=== PATIENT | male | born 1990 | race Hispanic/Latino ===

== ENCOUNTER 2016-07-19 20:06 | Emergency (ER) | payer MEDICAID ==
[2016-07-19 20:37] VITALS: BP 137/74; PULSE 68; RESP 18; TEMP 97.3; O2SAT 100
[2016-07-19] MEDS ORDERED: Tetanus/Diphtheria Toxoids 0.5 ml Syringe IM ONE ×2 (20:54→20:59)
--- NOTE | 2016-07-19 20:57 | C.PDOC ---
History Of Present Illness 25 yo male come in for evaluation of gradual onset of lower back pain " after was playing basketball and woke up next day with back pain". Pt reports, pain is localized over lower back, non-radiating and worse with movement. Otherwise, pt denies known direct trauma or injury, fall, abd. pain, N/V, UTI sx, saddle anesthesia, incontinence, denies weakness, sensory or vascular deficits to B/L LEs. Pt also request tetanus inj. after " stuck my finger over metal at work 3 days ago". Denies pain, swelling or wound discharge from injured Right thumb. Ambulate to ED for evaluation, appears in pain. Time Seen by Provider: 07/19/16 20:38 Chief Complaint (Nursing): Back Pain History Per: Patient Onset/Duration Of Symptoms: Gradual Current Symptoms Are (Timing): Worse Past Medical History Reviewed: Historical Data, Nursing Documentation, Vital Signs Vital Signs: Last Vital Signs Temp 97.3 F L 07/19/16 20:34 Pulse 68 07/19/16 20:34 Resp 18 07/19/16 20:34 BP 137/74 07/19/16 20:34 Pulse Ox 100 07/19/16 20:34 - Medical History PMH: No Chronic Diseases Surgical History: No Surg Hx Family History: States: No Known Family Hx - Social History Hx Alcohol Use: Yes Hx Substance Use: No - Immunization History Hx Tetanus Toxoid Vaccination: No (unknown) Hx Influenza Vaccination: No Hx Pneumococcal Vaccination: No Review Of Systems Except As Marked, All Systems Reviewed And Found Negative. Constitutional: Negative for: Fever, Chills ENT: Negative for: Throat Pain Respiratory: Negative for: Cough, Shortness of Breath Gastrointestinal: Negative for: Nausea, Vomiting, Abdominal Pain, Diarrhea Genitourinary: Negative for: Dysuria, Frequency, Incontinence Musculoskeletal: Positive for: Back Pain Skin: Positive for: Lesions Neurological: Negative for: Weakness, Numbness, Dizziness Physical Exam - Physical Exam Appears: Well, Non-toxic, No Acute Distress Skin: Normal Color, Warm, Dry Eye(s): bilateral: Normal Inspection Throat: Normal Neck: Normal, Normal ROM, Trachea Midline, Supple Respiratory: Normal Breath Sounds Gastrointestinal/Abdominal: Normal Exam, Soft, No Tenderness, No Distention, No Guarding, No Rebound Back: No CVA Tenderness, No Vertebral Tenderness, Paraspinal Tenderness ( diffuse mild lumbar paraspinal tenderness with muscle spams and mild edema. No midline tenderness or deformity.) Extremity: Normal ROM, No Pedal Edema, No Deformity, Other (Right thumb punctuate subungual hematoma noted medial aspect nail. No edema, no erythema, no proximal streaking. FAROM, no neurovascular deficits.) Neurological/Psych: Oriented x3, Normal Speech, Normal Motor, Normal Sensation, Normal Reflexes ED Course And Treatment O2 Sat by Pulse Oximetry: 100 Pulse Ox Interpretation: Normal Progress Note: On re-eval, pt is afebrile, hemodynamicaly stable. NOn-toxic. Ambulatory in ED with stable gait. Tolerate Po well in Ed. ENT: no acute findings. Lungs: CTA B/L, BS equal B/L. ABd: benign. Neurologicaly intact. Imaging ( xray of L-spine) offered, pt refused at this time. Analgesics, tetanus given. Pt has clinical findings c/w lumbar strain, finger contusion/ punctuate subungual hematoma. Pt advised. ref. to F/u with PMD, PM In 2-3 days for re-eval. return if any new changes. Disposition Counseled Patient/Family Regarding: Diagnosis, Need For Followup, Rx Given - Disposition Referrals: Non [facility] Provider, [Primary Care Provider] - [facility] [Outside] Disposition: HOME/ ROUTINE Disposition Time: 20:57 Condition: STABLE Additional Instructions: No physical activity for 1week, avoid heavy lifting, bending, etc. Take pain medication as prescribed Follow up with PMD, Pain Management, PT in 2-3 days for re-evaluation. Return to ED if any worsening or new changes. Prescriptions: Ibuprofen [Motrin] 600 mg PO Q6 #20 tab Methocarbamol [Robaxin] 500 mg PO TID #14 tab traMADol [Ultram] 50 mg PO TID #7 tab Instructions: Muscle Spasm (ED), Back Pain (ED), Subungual Hematoma (ED) - Clinical Impression Clinical Impression: Lumbar sprain, Subungual hematoma
== END 2016-07-19 21:28 | disposition home or self-care (01) ==
LOC: SUPCPDRO 20:06 → C.ER 20:06
DX: S33.5XXA Sprain of ligaments of lumbar spine, initial encounter (principal); X58.XXXA Exposure to other specified factors, initial encounter; Y93.67 Activity, basketball; S60.011A Contusion of right thumb without damage to nail, initial encounter; W23.0XXA Caught, crushed, jammed, or pinched between moving objects, initial encounter; Y92.89 Other specified places as the place of occurrence of the external cause; Y99.0 Civilian activity done for income or pay
CPT/HCPCS: 90471; 90714; 96372; 99283; J1885

== ENCOUNTER 2016-07-29 23:45 | Emergency (ER) | payer MEDICAID ==
[2016-07-29 23:53] VITALS: TEMP 97.4; O2SAT 98
--- NOTE | 2016-07-30 01:27 | C.PDOC ---
History Of Present Illness Patient is a 25 year old male who presents to the ER with a complaint of back pain for a month. Patient was seen in ER 10 days ago for same complaint and was sent home with pain medications and reports minimal improvement. Patient denies any new fall, injury, incontinence, or numbness to the lower extremities. Time Seen by Provider: 07/30/16 00:24 Chief Complaint (Nursing): Back Pain History Per: Patient History/Exam Limitations: no limitations Onset/Duration Of Symptoms: Days (1 month) Current Symptoms Are (Timing): Still Present Quality Of Discomfort: Unable To Describe Severity: None Previous Symptoms: Back Pain Associated Symptoms: denies: Incontinence, New Weakness, New Numbness Exacerbating Factor(s): Movement Recent travel outside of the [place]: No Past Medical History Reviewed: Historical Data, Nursing Documentation, Vital Signs Vital Signs: Last Vital Signs Temp 97.4 F L 07/29/16 23:50 Pulse 61 07/30/16 01:48 Resp 18 07/30/16 01:48 BP 130/70 07/30/16 01:48 Pulse Ox 98 07/30/16 01:48 - Medical History PMH: No Chronic Diseases Surgical History: No Surg Hx Family History: States: Unknown Family Hx - Social History Hx Alcohol Use: Yes Hx Substance Use: No - Immunization History Hx Tetanus Toxoid Vaccination: No (unknown) Hx Influenza Vaccination: No Hx Pneumococcal Vaccination: No Review Of Systems Genitourinary: Negative for: Incontinence Musculoskeletal: Positive for: Back Pain. Negative for: Neck Pain, Shoulder Pain, Leg Pain Neurological: Negative for: Weakness, Numbness Physical Exam - Physical Exam Appears: Well, Non-toxic Skin: Normal Color, Warm, Dry Head: Atraumatic, Normacephalic Oral Mucosa: Moist Back: No CVA Tenderness, Other (Very mild paralumbar and sacral tenderness) Extremity: Normal ROM (4x), Other (Good strength to all extremities) Neurological/Psych: Oriented x3, Normal Speech, Normal Cognition, Normal Motor, Normal Sensation ED Course And Treatment O2 Sat by Pulse Oximetry: 98 (Room air) Pulse Ox Interpretation: Normal Progress Note: Lower spinal x-ray ordered. Spinal x-ray was negative. Patient refused motrin. Advised to follow up with PMD. Disposition Counseled Patient/Family Regarding: Diagnosis, Need For Followup, Rx Given - Disposition Disposition: HOME/ ROUTINE Disposition Time: 01:25 Condition: STABLE Additional Instructions: Please follow up with PMD Tylenol or advil for pain Return to ER if worse Instructions: Back Pain (ED) - Clinical Impression Clinical Impression: Low back pain - Scribe Statement The provider has reviewed the documentation as recorded by the Scribmeliton Pitt All medical record entries made by the Markellibmeliton were at my direction and personally dictated by me. I have reviewed the chart and agree that the record accurately reflects my personal performance of the history, physical exam, medical decision making, and the department course for this patient. I have also personally directed, reviewed, and agree with the discharge instructions and disposition.
[2016-07-30 01:49] VITALS: BP 130/70; PULSE 61; RESP 18
--- NOTE | 2016-07-30 08:30 | RAD ---
PROCEDURE: Radiographs of the Lumbar Spine. HISTORY: pain, trauma COMPARISON: None available. FINDINGS: BONES: Alignment appears satisfactory. No listhesis. No acute displaced fracture identified. DISC SPACES: Unremarkable. OTHER FINDINGS: None. IMPRESSION: No acute displaced fracture or subluxation identified.
== END 2016-07-30 01:48 | disposition home or self-care (01) ==
LOC: C.ER 23:45
DX: M54.5 Low back pain (principal)

== ENCOUNTER 2016-09-06 09:56 | Emergency (ER) | payer MEDICAID ==
[2016-09-06 10:21] VITALS: BP 118/69; PULSE 52; RESP 18; TEMP 97.6; O2SAT 100
--- NOTE | 2016-09-06 10:34 | C.PDOC ---
History Of Present Illness NEW ONSET HIVES SINCE YEST. GENERALIZED +ITCH. SX IMPROVED BUT PERSIST. HO ASTHMA, ECZEMA. DENIES ASTHMA EXAC, MOUTH SWELL. EXAM NARD HEENT NO ANGIOEDEMA, DROOL LUNGS CTA B/L NO W/R/R SKIN +GEN HIVES NO EDEMA Time Seen by Provider: 09/06/16 10:24 Chief Complaint (Nursing): Abnormal Skin Integrity History Per: Patient History/Exam Limitations: no limitations Onset/Duration Of Symptoms: Days Current Symptoms Are (Timing): Still Present Associated Symptoms: Skin Rash. denies: Swelling, Dizziness, Chest Pain Recent travel outside of the [place]: No Past Medical History Reviewed: Historical Data, Nursing Documentation, Vital Signs Vital Signs: Last Vital Signs Temp 97.6 F 09/06/16 10:20 Pulse 52 L 09/06/16 10:20 Resp 18 09/06/16 10:20 BP 118/69 09/06/16 10:20 Pulse Ox 100 09/06/16 10:34 - Medical History PMH: Asthma Family History: States: Unknown Family Hx - Social History Hx Alcohol Use: No Hx Substance Use: No - Immunization History Hx Tetanus Toxoid Vaccination: No (unknown) Hx Influenza Vaccination: No Hx Pneumococcal Vaccination: No Review Of Systems Except As Marked, All Systems Reviewed And Found Negative. Constitutional: Negative for: Fever, Chills ENT: Negative for: Mouth Swelling, Throat Pain, Throat Swelling Cardiovascular: Negative for: Chest Pain Respiratory: Negative for: Cough, Shortness of Breath, Wheezing Gastrointestinal: Negative for: Nausea, Vomiting Skin: Positive for: Rash Neurological: Negative for: Dizziness Physical Exam - Physical Exam Appears: Non-toxic, No Acute Distress, Other (NARD) Skin: Warm, Dry, Rash (+GEN HIVES NO EDEMA) Head: Atraumatic, Normacephalic Oral Mucosa: Moist Tongue: No Swelling Throat: Normal, No Erythema, No Exudate, No Drooling, Other (NO ANGIOEDEMA, DROOL) Neck: Supple Chest: Symmetrical Cardiovascular: Rhythm Regular Respiratory: Normal Breath Sounds, No Rales, No Rhonchi, No Stridor, No Wheezing Gastrointestinal/Abdominal: Soft, No Tenderness Back: Normal Inspection Extremity: Normal ROM Neurological/Psych: Oriented x3, Normal Speech, Normal Cognition ED Course And Treatment O2 Sat by Pulse Oximetry: 100 (RA) Pulse Ox Interpretation: Normal Progress - Re-Evaluation Re-evaluation Note: 09/06/16 10:31 TREATED W BENADRYL AND PREDNISONE Disposition Counseled Patient/Family Regarding: Diagnosis, Need For Followup, Rx Given - Disposition Referrals: YOUR,PMD [Other] Disposition: HOME/ ROUTINE Disposition Time: 10:33 Condition: IMPROVED Prescriptions: DiphenhydrAMINE [Benadryl] 50 mg PO TID PRN #30 cap PRN Reason: Itching / Pruritus predniSONE [Prednisone] 60 mg PO DAILY #12 tab Instructions: Urticaria (ED) Forms: Work Excuse - Clinical Impression Clinical Impression: Hives - Scribe Statement The provider has reviewed the documentation as recorded by the Scribe GNINY ALEXANDRE All medical record entries made by the Markellibe were at my direction and personally dictated by me. I have reviewed the chart and agree that the record accurately reflects my personal performance of the history, physical exam, medical decision making, and the department course for this patient. I have also personally directed, reviewed, and agree with the discharge instructions and disposition.
== END 2016-09-06 10:42 | disposition home or self-care (01) ==
LOC: C.ER 09:56
DX: L50.9 Urticaria, unspecified (principal)